=== PATIENT | male | born 1955 | race Caucasian/White ===

== ENCOUNTER 2017-06-24 07:01 | Day surgery (SDC) | payer OTHER ==
[~2017-06-24 07:01] MED LIST: PERCOCET 5/3251 TAB PO
== END 2017-06-24 15:00 | disposition home or self-care (01) ==
LOC: AMB-ENDOS 07:01
DX: K64.1 Second degree hemorrhoids (principal); Z12.11 Encounter for screening for malignant neoplasm of colon

== ENCOUNTER → 2020-08-12 | Day surgery (SDC) | payer OTHER | END | disposition home or self-care (01) | LOC: ADM 08-08 15:30 → AMB-ENDOS 11:12 | PROVIDERS: ATTEND Colon & Rectal Surgery | DX: K62.89 Other specified diseases of anus and rectum (principal); K64.2 Third degree hemorrhoids; Z20.822 Contact with and (suspected) exposure to COVID-19; Z12.11 Encounter for screening for malignant neoplasm of colon ==